=== PATIENT | female | born 1950 | race African-American/Black ===

== ENCOUNTER 2018-04-15 11:06 | Inpatient (IN) | payer MEDICARE ==
[~2018-04-15] VITALS: Ht 157.5 cm; Wt 80.7 kg
--- NOTE | 2018-04-15 11:56 | PHYS DOC ---
Past Medical History Past Medical History: Hypertension Additional Past Medical Histor: uncontrolled Past Surgical History: Appendectomy, Cholecystectomy, Tubal ligation, Other Additional Past Surgical Histo: ovarian cyst; Alcohol Use: Occasionally Drug Use: None Adult General Chief Complaint Chief Complaint: HYPERTENSION [facility] HPI Patient is a 68 year old female who presents with dyspnea. The patient reports feeling short of breath over the last 2 days. Her symptoms initially were intermittent but she reports that she became consistently short of breath this morning. Her symptoms are worse with activity although she continues to have dyspnea while at rest. She denies chest pain. She has no recent travel. She has no history of hormone replacement therapy. The patient does have a remote history of high blood pressure for which she is currently not treated. She states she stopped taking her medications many years earlier and did not return to her doctor to have refills. Review of Systems Review of Systems Constitutional: Denies fever or chills Eyes: Denies change in visual acuity HENT: Denies nasal congestion or sore throat Respiratory: Denies cough Cardiovascular: No additional information not addressed in HPI GI: Denies abdominal pain Musculoskeletal: Denies back pain Integument: Denies rash or skin lesions Neurologic: Denies headache, no focal neuro complaints Endocrine: Denies polyuria or polydipsia All other systems were reviewed and found to be within normal limits, except as documented in this note. Current Medications Current Medications Current Medications Medications (Trade) Dose Ordered Sig/Ingrid Start Time Stop Time Status Last Admin Dose Admin Nitroglycerin/ Dextrose 250 ml @ 0 mls/hr 1X ONCE 04/15/18 12:00 04/15/18 12:01 DC 04/15/18 12:18 1.5 MLS/HR Allergies Allergies Allergies Coded Allergies Type Severity Reaction Last Updated Verified No Known Drug Allergies 04/15/18 No Physical Exam Physical Exam Constitutional: Well developed, well nourished, no acute distress, non-toxic appearance HENT: Normocephalic, atraumatic, bilateral external ears normal, oropharynx moist Eyes: PERRLA, EOMI, conjunctiva normal Neck: Normal range of motion, no tenderness, supple, no stridor, + JVD Cardiovascular:Heart rate regular rhythm, no murmur Lungs & Thorax: mild dyspnea, crackles heard over bilateral bases Abdomen: Bowel sounds normal, soft, NTTP Skin: Warm, dry, no erythema, no rash. Extremities: No tenderness, no edema Neurologic: Alert and oriented X 3 Psychologic: Affect normal, judgement normal Current Patient Data Vital Signs Vital Signs Date Time Temp Pulse Resp B/P (MAP) Pulse Ox O2 Delivery O2 Flow Rate FiO2 04/15/18 12:46 82 16 97 04/15/18 11:25 99.1 243/114 (157) Room Air 99.1 Lab Values Laboratory Tests Test 04/15/18 11:57 04/15/18 12:50 White Blood Count 8.8 x10^3/uL (4.0-11.0) Red Blood Count 4.67 x10^6/uL (3.50-5.40) Hemoglobin 13.3 g/dL (12.0-15.5) Hematocrit 39.2 % (36.0-47.0) Mean Corpuscular Volume 84 fL (79-100) Mean Corpuscular Hemoglobin 29 pg (25-35) Mean Corpuscular Hemoglobin Concent 34 g/dL (31-37) Red Cell Distribution Width 16.1 % (11.5-14.5) H Platelet Count 300 x10^3/uL (140-400) Neutrophils (%) (Auto) 75 % (31-73) H Lymphocytes (%) (Auto) 16 % (24-48) L Monocytes (%) (Auto) 7 % (0-9) Eosinophils (%) (Auto) 2 % (0-3) Basophils (%) (Auto) 1 % (0-3) Neutrophils # (Auto) 6.6 x10^3uL (1.8-7.7) Lymphocytes # (Auto) 1.4 x10^3/uL (1.0-4.8) Monocytes # (Auto) 0.6 x10^3/uL (0.0-1.1) Eosinophils # (Auto) 0.1 x10^3/uL (0.0-0.7) Basophils # (Auto) 0.1 x10^3/uL (0.0-0.2) Prothrombin Time 13.0 SEC (11.7-14.0) Prothrombin Time INR 1.0 (0.8-1.1) PTT 30 SEC (24-38) Sodium Level 141 mmol/L (136-145) Potassium Level 3.5 mmol/L (3.5-5.1) Chloride Level 105 mmol/L (98-107) Carbon Dioxide Level 27 mmol/L (21-32) Anion Gap 9 (6-14) Blood Urea Nitrogen 6 mg/dL (7-20) L Creatinine 0.8 mg/dL (0.6-1.0) Estimated GFR (Cockcroft-Gault) 71.3 Glucose Level 125 mg/dL (70-99) H Calcium Level 8.4 mg/dL (8.5-10.1) L Total Bilirubin 0.4 mg/dL (0.2-1.0) Direct Bilirubin 0.1 mg/dL (0.0-0.2) Aspartate Amino Transferase (AST) 15 U/L (15-37) Alanine Aminotransferase (ALT) 25 U/L (14-59) Alkaline Phosphatase 83 U/L (46-116) Troponin I Quantitative < 0.017 ng/mL (0.000-0.055) DT-Vyz-B-Type Natriuretic Peptide 01329 pg/mL (0-124) H Total Protein 7.2 g/dL (6.4-8.2) Albumin 3.4 g/dL (3.4-5.0) Urine Collection Type Unknown Urine Color Yellow Urine Clarity Clear Urine pH 6.0 Urine Specific [place] 1.010 Urine Protein Negative mg/dL (NEG-TRACE) Urine Glucose (UA) Negative mg/dL (NEG) Urine Ketones (Stick) Negative mg/dL (NEG) Urine Blood Negative (NEG) Urine Nitrite Negative (NEG) Urine Bilirubin Negative (NEG) Urine Urobilinogen Dipstick 0.2 mg/dL (0.2 mg/dL) Urine Leukocyte Esterase Negative (NEG) Urine RBC 0 /HPF (0-2) Urine WBC 1-4 /HPF (0-4) Urine Squamous Epithelial Cells Few /LPF Urine Bacteria Mod /HPF (0-FEW) Laboratory Tests 04/15/18 11:57 Laboratory Tests 04/15/18 11:57 EKG EKG No STEMI Interpretation Time: 11:30 Radiology/Procedures Radiology/Procedures No abnormality seen at the thyroid gland. The trachea and mainstem bronchi show no intraluminal lesions. No abnormality seen at the esophagus. The thoracic aorta shows no aneurysmal dilatation or dissection. The heart size is upper normal with no pericardial effusion. There is no evidence of pulmonary embolus. There are small bilateral pleural effusions layering posteriorly, right greater than left. There is some atelectasis in the left lingula. No other infiltrates or pneumothorax are seen. No acute bony abnormalities are seen but there are some hypertrophic changes in the spine. No abnormality seen at the visualized portions of the liver, spleen, adrenal glands or pancreas. Gallbladder appears to be surgically absent. IMPRESSION: No evidence of pulmonary embolus. Linear atelectasis in the left lingular segment. Small bilateral pleural effusions, right greater than left. Course & Med Decision Making Course & Med Decision Making Pertinent Labs and Imaging studies reviewed. (See chart for details) Patient is seen and examined. She has a systolic blood pressure in the 220s to 240's. She has JVD. She has crackles. Suspect hypertensive emergency. EKG is ordered but does not show STEMI. We'll check labs, urinalysis. NTG ordered. Patient was ultimately found to have significant elevated BNP. Her x-ray did not reveal pulmonary edema. Her CT scan did reveal bilateral pleural effusions that are small. She did not have oxygen requirement. She did not have overt right sided heart failure either. Patient was placed on nitroglycerin drip. The her blood pressure improved to 180s to 190 systolic with a nitroglycerin drip rate of 40-50 mics. I discussed this patient for admission with Dr. Lawson who agreed to admit the patient. Patient was also agreeable. All of her results were reviewed and discussed with her. Darrell Disclaimer Darrell Disclaimer This electronic medical record was generated, in whole or in part, using a voice recognition dictation system. ADELAIDA RODRIGUEZ DO Apr 15, 2018 11:56
[2018-04-15] MEDS ORDERED: NITROGLYCERIN PREMIX 250 ML IV ONE (12:00)
--- NOTE | 2018-04-15 12:06 | RAD ---
Chest AP portable at 1154: Reason for examination: Hypertension and dyspnea. The heart size is enlarged. Mediastinum is unremarkable. Lung good are clear. No acute bony abnormalities are seen. Impression: Cardiomegaly. No gross congestion or infiltrates. Electronically signed by: Jyoti Portillo MD (04/15/2018 12:02 PM) [facility] [place]
[2018-04-15 12:10] LABS: BASO # 0.1 x10^3/uL (0.0-0.2); BASO % 1 % (0-3); EOS # 0.1 x10^3/uL (0.0-0.7); EOS % 2 % (0-3); HEMATOCRIT 39.2 % (36.0-47.0); HEMOGLOBIN 13.3 g/dL (12.0-15.5); LYMPH # 1.4 x10^3/uL (1.0-4.8); LYMPH % 16 % (24-48); MEAN CORPUSCULAR HEMOGLOBIN 29 pg (25-35); MEAN CORPUSCULAR HGB CONC 34 g/dL (31-37); MEAN CORPUSCULAR VOLUME 84 fL (79-100); MONO # 0.6 x10^3/uL (0.0-1.1); MONO % 7 % (0-9); NEUT # 6.6 x10^3uL (1.8-7.7); NEUT % 75 % (31-73); PLATELET COUNT 300 x10^3/uL (140-400); RED BLOOD COUNT 4.67 x10^6/uL (3.50-5.40); RED CELL DISTRIBUTION WIDTH 16.1 % (11.5-14.5); WHITE BLOOD COUNT 8.8 x10^3/uL (4.0-11.0)
--- NOTE | 2018-04-15 12:12 | EKG ---
[facility] [address] [place] [address] Test Date: 2018-04-15 Test Time: 11:25:42 Pat Name: TANNER VÁSQUEZ Department: Room: Gender: Female Jr. Systems Administrator: [place] : 1950 Requested By: ADELAIDA RODRIGUEZ Order Number: [id number] Reading MD: Sarwat Lentz MD Measurements Intervals [place] Rate: 103 P: 2 [place]: 126 QRS: -13 QRSD: 88 T: 118 QT: 342 QTc: 456 Interpretive Statements SINUS TACHYCARDIA LEFT ATRIAL ABNORMALITY LEFTWARD AXIS LVH WITH REPOLARIZATION ABNORMALITY Electronically Signed On 04-16-2018 10:07:39 CDT by Sarwat Lentz MD
[2018-04-15 12:18] LABS: CALCIUM 8.4 mg/dL (8.5-10.1); CREATININE 0.8 mg/dL (0.6-1.0); GFR 71.3; POTASSIUM 3.5 mmol/L (3.5-5.1)
[2018-04-15 12:23] LABS: ALBUMIN 3.4 g/dL (3.4-5.0); DIRECT BILIRUBIN 0.1 mg/dL (0.0-0.2); TOTAL BILIRUBIN 0.4 mg/dL (0.2-1.0); TOTAL PROTEIN 7.2 g/dL (6.4-8.2)
[2018-04-15 13:04] LABS: BILIRUBIN,URINE NEGATIVE (NEG); CLARITY,URINE CLEAR; COLOR,URINE YELLOW; NITRITE,URINE NEGATIVE (NEG); PROTEIN,URINE NEGATIVE (NEG-TRACE); UROBILINOGEN,URINE 0.2 mg/dL (0.2 mg/dL)
[2018-04-15 13:13] LABS: BACTERIA,URINE MOD /HPF (0-FEW); RBC,URINE 0 /HPF (0-2); SQUAMOUS EPITHELIAL CELL,UR FEW /LPF
[2018-04-15] MEDS ORDERED: CONTRAST GIVEN. MC PRN (13:15)
[2018-04-15] MEDS ORDERED: IOHEXOL 300 MG/ML 100ML VIAL. IV ONE (13:30)
--- NOTE | 2018-04-15 13:33 | RAD ---
CT angiogram of the chest with contrast: Reason for examination: Dyspnea. Uncontrolled blood pressure. Helical images were obtained through the chest with intravenous administration of 75 cc Omnipaque 300 using PE protocol. 3-D MIPS reconstruction was performed in sagittal and coronal planes. Exposure: One or more of the following individualized dose reduction techniques were utilized for this examination: 1. Automated exposure control 2. Adjustment of the mA and/or kV according to patient size 3. Use of iterative reconstruction technique. No abnormality seen at the thyroid gland. The trachea and mainstem bronchi show no intraluminal lesions. No abnormality seen at the esophagus. The thoracic aorta shows no aneurysmal dilatation or dissection. The heart size is upper normal with no pericardial effusion. There is no evidence of pulmonary embolus. There are small bilateral pleural effusions layering posteriorly, right greater than left. There is some atelectasis in the left lingula. No other infiltrates or pneumothorax are seen. No acute bony abnormalities are seen but there are some hypertrophic changes in the spine. No abnormality seen at the visualized portions of the liver, spleen, adrenal glands or pancreas. Gallbladder appears to be surgically absent. IMPRESSION: No evidence of pulmonary embolus. Linear atelectasis in the left lingular segment. Small bilateral pleural effusions, right greater than left. Electronically signed by: Jyoti Portillo MD (04/15/2018 1:29 PM) [facility]
[2018-04-15] MEDS ORDERED: ACETAMINOPHEN 325 MG TABLET. PO PRN (13:45)
[2018-04-15 15:05] VITALS: BP 187/89
--- NOTE | 2018-04-15 15:19 | HP ---
ADMIT DATE: 04/15/2018 CHIEF COMPLAINT: Hypertension. HISTORY OF PRESENT ILLNESS: The patient is a pleasant 68-year-old female who has not seen a doctor in over 11 years. She states she noted that she is a little short of breath for the past couple of days. It has been intermittent, but this morning became consistent. She tried taking some home meds [id number] but that did not seem to help. She states she used to have high blood pressure, but quit taking her meds and quit going to her doctor. While in the ER, she was noted to have pressures in the 240s. We placed her on nitro. I have discussed the case with ER physician. We are going to admit the patient. PAST MEDICAL HISTORY: Noncompliance, hypertension, cholecystectomy, tubal ligation, ovarian cyst. ALLERGIES: None. FAMILY HISTORY: Hypertension. SOCIAL HISTORY: She is a retired teacher. She does not drink, smoke or take drugs. MEDICATIONS: Reviewed, please refer to the MRAD. REVIEW OF SYSTEMS: GENERAL: She complains of weakness. SKIN: No bruising, hair changes or rashes. EYES: No blurred, double or loss of vision. NOSE AND THROAT: No history of nosebleeds, hoarseness or sore throat. HEART: No history of palpitations, chest pain or shortness of breath on exertion. LUNGS: Denies cough, hemoptysis, wheezing or shortness of breath. GASTROINTESTINAL: Denies changes in appetite, nausea, vomiting, diarrhea or constipation. GENITOURINARY: No history of frequency, urgency, hesitancy or nocturia. NEUROLOGIC: Denies history of numbness, tingling, tremor or weakness. PSYCHIATRIC: No history of panic, anxiety or depression. ENDOCRINE: No history of heat or cold intolerance, polyuria or polydipsia. EXTREMITIES: Denies muscle weakness, joint pain, pain on walking or stiffness. PHYSICAL EXAMINATION: VITAL SIGNS: Temperature afebrile, pulse 92, respirations 18, blood pressure 243/114. GENERAL: She is alert, cooperative. HEART: Normal S1, S2. LUNGS: Clear. ABDOMEN: Soft. EXTREMITIES: Trace edema. SKIN: No rashes. ENDOCRINE: No thyromegaly. LYMPHATICS: No cervical nodes. HEMATOPOIETIC: No bruising. LABORATORY DATA: Hematology is normal. Electrolytes are normal. Glucose is 125, calcium 8.4. BNP 13,733. ASSESSMENT AND PLAN: Hypertensive urgency with acute on chronic systolic and diastolic heart failure. The patient is being admitted. We will consult Cardiology. IV nitro, ICU monitoring, try to resume her home meds, PT, OT, frequent labs. PROGNOSIS: Guarded. AMINTA SMART DO DR: LEODAN/nicolle JOB#: [id number] / [id number]
[2018-04-15] MEDS ORDERED: BENZOCAINE/MENTHOL LOZENGE. PO PRN (16:30)
[2018-04-15 19:30] VITALS: BP 186/85
[2018-04-15] MEDS ORDERED: FUROSEMIDE 40 MG/4 ML VIAL. IVP ONE (19:30)
[2018-04-15] MEDS: IPRATRPIUM/ALBUTEROL 0.5/2.5MG 3 ML NEBU. NEB SCH (20:34)
[2018-04-15 22:35] VITALS: BP 167/81
[2018-04-16 03:05] VITALS: BP 174/81
[2018-04-16 05:09] LABS: BASO % 0 % (0-3); EOS # 0.2 x10^3/uL (0.0-0.7); EOS % 2 % (0-3); HEMATOCRIT 38.6 % (36.0-47.0); LYMPH # 1.3 x10^3/uL (1.0-4.8); LYMPH % 17 % (24-48); MEAN CORPUSCULAR HEMOGLOBIN 28 pg (25-35); MEAN CORPUSCULAR HGB CONC 34 g/dL (31-37); MEAN CORPUSCULAR VOLUME 84 fL (79-100); MONO # 0.6 x10^3/uL (0.0-1.1); MONO % 8 % (0-9); NEUT # 5.6 x10^3uL (1.8-7.7); NEUT % 72 % (31-73); PLATELET COUNT 279 x10^3/uL (140-400); RED BLOOD COUNT 4.58 x10^6/uL (3.50-5.40); RED CELL DISTRIBUTION WIDTH 16.4 % (11.5-14.5); WHITE BLOOD COUNT 7.7 x10^3/uL (4.0-11.0)
[2018-04-16 05:45] LABS: ALBUMIN 3.3 g/dL (3.4-5.0); ALBUMIN/GLOBULIN RATIO 0.9 (1.0-1.7); CALCIUM 8.5 mg/dL (8.5-10.1); CREATININE 0.9 mg/dL (0.6-1.0); GFR 75.3; POTASSIUM 3.7 mmol/L (3.5-5.1); TOTAL BILIRUBIN 0.4 mg/dL (0.2-1.0); TOTAL PROTEIN 6.9 g/dL (6.4-8.2)
[2018-04-16 07:00] VITALS: BP 178/86
[2018-04-16] MEDS: IPRATRPIUM/ALBUTEROL 0.5/2.5MG 3 ML NEBU. NEB SCH ×4 (07:24→20:23)
--- NOTE | 2018-04-16 10:47 | PDOC2 ---
ANTHONY HOOKIA Gerald OVEREDGER 04/16/18 1047: CARDIAC CONSULT DATE OF CONSULT Date of Consult DATE: 04/16/18 TIME: 10:46 REASON FOR CONSULT Reason for Consult: dyspnea, elevated BNP REFERRING PHYSICIAN Referring Physician: [place] SOURCE Source: Chart review, Patient HISTORY OF PRESENT ILLNESS HISTORY OF PRESENT ILLNESS 68 year old female with a history of HTN who discontinued medications and has not followed up with a physician in > 11 years. Presented to ER with hypertensive urgency with acute heart failure/pulmonary edema symptoms per ER record. Treated with IV lasix and NTG gtt. Patient with thoracic and upper abdominal pressure associated with dyspnea and lightheadedness only. Denies recent LE edema, PND or orthopnea. Also noted symptoms when in the heat this year. EKG without acute changes; troponin levels not consistent with [place]I X 2 [place] [address], however, CXR without pulmonary edema. Reason for Visit: hypertensive urgency PAST MEDICAL HISTORY Cardiovascular: HTN PAST SURGICAL HISTORY Past Surgical History: Appendectomy, Cholecystectomy, Tubal Ligation, Other ( ovarian cyst) FAMILY HISTORY Family History: Diabetes, Heart Disease, Hypertension, Stroke SOCIAL HISTORY Smoke: 2 packs per day (1-2 ppd since in her early 20s) ALCOHOL: occassional Drugs: None Lives: Alone CURRENT MEDICATIONS CURRENT MEDICATIONS Current Medications Medications (Trade) Dose Ordered Sig/Ingrid Route PRN Reason Start Time Stop Time Status Last Admin Dose Admin Nitroglycerin/ Dextrose 250 ml @ 0 mls/hr 1X ONCE IV 04/15/18 12:00 04/15/18 12:01 DC 04/15/18 12:18 Iohexol (Omnipaque 300 Mg/ml) 75 ml 1X ONCE IV 04/15/18 13:30 04/15/18 13:31 DC 04/15/18 13:20 Acetaminophen (Tylenol) 650 mg PRN Q4HRS PRN PO FEVER 04/15/18 13:45 04/16/18 13:44 04/15/18 16:29 Throat Lozenges (Cepacol Sore Throat Lozenge) 1 saul PRN Q4HRS PRN PO SORE THROAT 04/15/18 16:30 04/15/18 16:43 Furosemide (Lasix) 60 mg 1X ONCE IVP 04/15/18 19:30 04/15/18 19:31 DC 04/15/18 19:10 Albuterol/ Ipratropium (Duoneb) 3 ml RTQID NEB 04/15/18 20:00 04/16/18 07:24 ALLERGIES ALLERGIES: Coded Allergies: No Known Drug Allergies (Unverified , 04/15/18) ROS Review of System 14 point review with pertinent positives in HPI PHYSICAL EXAM General: Alert, Oriented X3, Cooperative, No acute distress HEENT: Atraumatic, Mucous membr. moist/pink Lungs: Clear to auscultation Heart: Normal S1, Normal S2, No murmurs, Other (no edema) Abdomen: Soft Extremities: Normal pulses Skin: No rashes Neuro: Normal speech Psych/Mental Status: Mental status NL, Mood NL MUSCULOSKELETAL: No deformity VITALS VITALS Vital Signs Date Time Temp Pulse Resp B/P (MAP) Pulse Ox O2 Delivery O2 Flow Rate FiO2 04/16/18 08:00 Room Air 04/16/18 07:24 99 04/16/18 07:00 98.1 87 18 178/86 (116) 98.1 LABS Lab: Laboratory Tests Test 04/15/18 11:57 04/15/18 12:50 04/15/18 19:20 04/16/18 04:00 White Blood Count 8.8 x10^3/uL (4.0-11.0) 7.7 x10^3/uL (4.0-11.0) Red Blood Count 4.67 x10^6/uL (3.50-5.40) 4.58 x10^6/uL (3.50-5.40) Hemoglobin 13.3 g/dL (12.0-15.5) 13.0 g/dL (12.0-15.5) Hematocrit 39.2 % (36.0-47.0) 38.6 % (36.0-47.0) Mean Corpuscular Volume 84 fL (79-100) 84 fL (79-100) Mean Corpuscular Hemoglobin 29 pg (25-35) 28 pg (25-35) Mean Corpuscular Hemoglobin Concent 34 g/dL (31-37) 34 g/dL (31-37) Red Cell Distribution Width 16.1 % (11.5-14.5) 16.4 % (11.5-14.5) Platelet Count 300 x10^3/uL (140-400) 279 x10^3/uL (140-400) Neutrophils (%) (Auto) 75 % (31-73) 72 % (31-73) Lymphocytes (%) (Auto) 16 % (24-48) 17 % (24-48) Monocytes (%) (Auto) 7 % (0-9) 8 % (0-9) Eosinophils (%) (Auto) 2 % (0-3) 2 % (0-3) Basophils (%) (Auto) 1 % (0-3) 0 % (0-3) Neutrophils # (Auto) 6.6 x10^3uL (1.8-7.7) 5.6 x10^3uL (1.8-7.7) Lymphocytes # (Auto) 1.4 x10^3/uL (1.0-4.8) 1.3 x10^3/uL (1.0-4.8) Monocytes # (Auto) 0.6 x10^3/uL (0.0-1.1) 0.6 x10^3/uL (0.0-1.1) Eosinophils # (Auto) 0.1 x10^3/uL (0.0-0.7) 0.2 x10^3/uL (0.0-0.7) Basophils # (Auto) 0.1 x10^3/uL (0.0-0.2) 0.0 x10^3/uL (0.0-0.2) Prothrombin Time 13.0 SEC (11.7-14.0) Prothromb Time International Ratio 1.0 (0.8-1.1) Activated Partial Thromboplast Time 30 SEC (24-38) Sodium Level 141 mmol/L (136-145) 141 mmol/L (136-145) Potassium Level 3.5 mmol/L (3.5-5.1) 3.7 mmol/L (3.5-5.1) Chloride Level 105 mmol/L (98-107) 105 mmol/L (98-107) Carbon Dioxide Level 27 mmol/L (21-32) 29 mmol/L (21-32) Anion Gap 9 (6-14) 7 (6-14) Blood Urea Nitrogen 6 mg/dL (7-20) 7 mg/dL (7-20) Creatinine 0.8 mg/dL (0.6-1.0) 0.9 mg/dL (0.6-1.0) Estimated GFR (Cockcroft-Gault) 71.3 75.3 Glucose Level 125 mg/dL (70-99) 100 mg/dL (70-99) Calcium Level 8.4 mg/dL (8.5-10.1) 8.5 mg/dL (8.5-10.1) Total Bilirubin 0.4 mg/dL (0.2-1.0) 0.4 mg/dL (0.2-1.0) Direct Bilirubin 0.1 mg/dL (0.0-0.2) Aspartate Amino Transf (AST/SGOT) 15 U/L (15-37) 12 U/L (15-37) Alanine Aminotransferase (ALT/SGPT) 25 U/L (14-59) 23 U/L (14-59) Alkaline Phosphatase 83 U/L (46-116) 79 U/L (46-116) Troponin I Quantitative < 0.017 ng/mL (0.000-0.055) < 0.017 ng/mL (0.000-0.055) GJ-Mcd-B-Type Natriuretic Peptide 04924 pg/mL (0-124) Total Protein 7.2 g/dL (6.4-8.2) 6.9 g/dL (6.4-8.2) Albumin 3.4 g/dL (3.4-5.0) 3.3 g/dL (3.4-5.0) Urine Collection Type Unknown Urine Color Yellow Urine Clarity Clear Urine pH 6.0 Urine Specific [place] 1.010 Urine Protein Negative mg/dL (NEG-TRACE) Urine Glucose (UA) Negative mg/dL (NEG) Urine Ketones (Stick) Negative mg/dL (NEG) Urine Blood Negative (NEG) Urine Nitrite Negative (NEG) Urine Bilirubin Negative (NEG) Urine Urobilinogen Dipstick 0.2 mg/dL (0.2 mg/dL) Urine Leukocyte Esterase Negative (NEG) Urine RBC 0 /HPF (0-2) Urine WBC 1-4 /HPF (0-4) Urine Squamous Epithelial Cells Few /LPF Urine Bacteria Mod /HPF (0-FEW) BUN/Creatinine Ratio 8 (6-20) Albumin/Globulin Ratio 0.9 (1.0-1.7) IMAGES IMAGES CTA chest: No evidence of pulmonary embolus. Linear atelectasis in the left lingular segment. Small bilateral pleural effusions, right greater than left. CXR: Cardiomegaly. No gross congestion or infiltrates. EKG EKG SINUS TACHYCARDIA LEFT ATRIAL ABNORMALITY LEFTWARD AXIS LVH WITH REPOLARIZATION ABNORMALITY ASSESSMENT/PLAN ASSESSMENT/PLAN 1. hypertensive urgency --noncompliance with medications --off NTG --start oral meds: add BB and CCB --advised she will needs meds for the remainder of her life --advised to obtain PCP 2. elevated NT-proBNP in the setting of hypertensive urgency --treated with IV diuretics in the ER --no supporting clinical findings --TTE to evaluate LVEF 3. chest pressure most likely secondary to hypertensive urgency --significant tobacco use (approx 80 pack years) and family history of heart disease --would consider MPI for tomorrow if BP controlled; if not, then recommend as outpatient --TTE to evaluate LVEF and assess for WMA as well as LVH --FLP ordered 4. tobacco abuse --smoking cessation advised ALEKS THOMAS MD 04/16/18 1617: CARDIAC CONSULT ASSESSMENT/PLAN ASSESSMENT/PLAN Patient seen and examined. Agree with [employer]'s assessment and plan. Accelerated hypertension secondary to noncompliance with medications. We will continue to to titrate oral antihypertensives for better blood pressure control. Continue diuresis for acute on chronic diastolic heart failure. Check 2-D echo to assess LV systolic function. Agree with Lexiscan nuclear stress test to rule out ischemia as an etiology of her chest pain. Thank you for your consultation. RAIMUNDO HOOK APRN Apr 16, 2018 10:47 ALEKS THOMAS MD Apr 16, 2018 16:17
[2018-04-16 11:00] VITALS: BP 180/102
[2018-04-16] MEDS ORDERED: LABETALOL HCL 100 MG TABLET. PO SCH (11:00)
[2018-04-16 15:00] VITALS: BP 174/89
--- NOTE | 2018-04-16 15:27 | PDOC ---
PROGRESS NOTES Chief Complaint Chief Complaint HTN urgency sob, copd with tobaccoism possible chf exacerbation morbid obesity chest pain, 2/2 chf possibly plan:fu with card mpi tmr add labetolol as per card, may need more meds add lasix 40mg iv daily echo pending dvt ppx talked to son at bedside History of Present Illness History of Present Illness ROS: no fever, chills, sob or chest pain feels better had sob and chest pain, neg CE htn still high at 200 Vitals Vitals Vital Signs Date Time Temp Pulse Resp B/P (MAP) Pulse Ox O2 Delivery O2 Flow Rate FiO2 04/16/18 11:40 Room Air 04/16/18 11:00 98.3 88 20 180/102 (128) 99 98.3 Physical Exam General: Alert, Oriented X3, Cooperative Heart: Regular rate, Normal S1, Normal S2 Lungs: Crackles (bl mild) Abdomen: Normal bowel sounds, Soft Extremities: No clubbing, No cyanosis Skin: No rashes, No breakdown Labs LABS Laboratory Tests Test 04/15/18 19:20 04/16/18 04:00 Troponin I Quantitative < 0.017 ng/mL (0.000-0.055) White Blood Count 7.7 x10^3/uL (4.0-11.0) Red Blood Count 4.58 x10^6/uL (3.50-5.40) Hemoglobin 13.0 g/dL (12.0-15.5) Hematocrit 38.6 % (36.0-47.0) Mean Corpuscular Volume 84 fL (79-100) Mean Corpuscular Hemoglobin 28 pg (25-35) Mean Corpuscular Hemoglobin Concent 34 g/dL (31-37) Red Cell Distribution Width 16.4 % (11.5-14.5) Platelet Count 279 x10^3/uL (140-400) Neutrophils (%) (Auto) 72 % (31-73) Lymphocytes (%) (Auto) 17 % (24-48) Monocytes (%) (Auto) 8 % (0-9) Eosinophils (%) (Auto) 2 % (0-3) Basophils (%) (Auto) 0 % (0-3) Neutrophils # (Auto) 5.6 x10^3uL (1.8-7.7) Lymphocytes # (Auto) 1.3 x10^3/uL (1.0-4.8) Monocytes # (Auto) 0.6 x10^3/uL (0.0-1.1) Eosinophils # (Auto) 0.2 x10^3/uL (0.0-0.7) Basophils # (Auto) 0.0 x10^3/uL (0.0-0.2) Sodium Level 141 mmol/L (136-145) Potassium Level 3.7 mmol/L (3.5-5.1) Chloride Level 105 mmol/L (98-107) Carbon Dioxide Level 29 mmol/L (21-32) Anion Gap 7 (6-14) Blood Urea Nitrogen 7 mg/dL (7-20) Creatinine 0.9 mg/dL (0.6-1.0) Estimated GFR (Cockcroft-Gault) 75.3 BUN/Creatinine Ratio 8 (6-20) Glucose Level 100 mg/dL (70-99) Calcium Level 8.5 mg/dL (8.5-10.1) Total Bilirubin 0.4 mg/dL (0.2-1.0) Aspartate Amino Transf (AST/SGOT) 12 U/L (15-37) Alanine Aminotransferase (ALT/SGPT) 23 U/L (14-59) Alkaline Phosphatase 79 U/L (46-116) Total Protein 6.9 g/dL (6.4-8.2) Albumin 3.3 g/dL (3.4-5.0) Albumin/Globulin Ratio 0.9 (1.0-1.7) Comment Review of Relevant I have reviewed the following items alex (where applicable) has been applied. Labs Laboratory Tests Test 04/15/18 11:57 04/15/18 12:50 04/15/18 19:20 04/16/18 04:00 White Blood Count 8.8 x10^3/uL (4.0-11.0) 7.7 x10^3/uL (4.0-11.0) Red Blood Count 4.67 x10^6/uL (3.50-5.40) 4.58 x10^6/uL (3.50-5.40) Hemoglobin 13.3 g/dL (12.0-15.5) 13.0 g/dL (12.0-15.5) Hematocrit 39.2 % (36.0-47.0) 38.6 % (36.0-47.0) Mean Corpuscular Volume 84 fL (79-100) 84 fL (79-100) Mean Corpuscular Hemoglobin 29 pg (25-35) 28 pg (25-35) Mean Corpuscular Hemoglobin Concent 34 g/dL (31-37) 34 g/dL (31-37) Red Cell Distribution Width 16.1 % (11.5-14.5) 16.4 % (11.5-14.5) Platelet Count 300 x10^3/uL (140-400) 279 x10^3/uL (140-400) Neutrophils (%) (Auto) 75 % (31-73) 72 % (31-73) Lymphocytes (%) (Auto) 16 % (24-48) 17 % (24-48) Monocytes (%) (Auto) 7 % (0-9) 8 % (0-9) Eosinophils (%) (Auto) 2 % (0-3) 2 % (0-3) Basophils (%) (Auto) 1 % (0-3) 0 % (0-3) Neutrophils # (Auto) 6.6 x10^3uL (1.8-7.7) 5.6 x10^3uL (1.8-7.7) Lymphocytes # (Auto) 1.4 x10^3/uL (1.0-4.8) 1.3 x10^3/uL (1.0-4.8) Monocytes # (Auto) 0.6 x10^3/uL (0.0-1.1) 0.6 x10^3/uL (0.0-1.1) Eosinophils # (Auto) 0.1 x10^3/uL (0.0-0.7) 0.2 x10^3/uL (0.0-0.7) Basophils # (Auto) 0.1 x10^3/uL (0.0-0.2) 0.0 x10^3/uL (0.0-0.2) Prothrombin Time 13.0 SEC (11.7-14.0) Prothromb Time International Ratio 1.0 (0.8-1.1) Activated Partial Thromboplast Time 30 SEC (24-38) Sodium Level 141 mmol/L (136-145) 141 mmol/L (136-145) Potassium Level 3.5 mmol/L (3.5-5.1) 3.7 mmol/L (3.5-5.1) Chloride Level 105 mmol/L (98-107) 105 mmol/L (98-107) Carbon Dioxide Level 27 mmol/L (21-32) 29 mmol/L (21-32) Anion Gap 9 (6-14) 7 (6-14) Blood Urea Nitrogen 6 mg/dL (7-20) 7 mg/dL (7-20) Creatinine 0.8 mg/dL (0.6-1.0) 0.9 mg/dL (0.6-1.0) Estimated GFR (Cockcroft-Gault) 71.3 75.3 Glucose Level 125 mg/dL (70-99) 100 mg/dL (70-99) Calcium Level 8.4 mg/dL (8.5-10.1) 8.5 mg/dL (8.5-10.1) Total Bilirubin 0.4 mg/dL (0.2-1.0) 0.4 mg/dL (0.2-1.0) Direct Bilirubin 0.1 mg/dL (0.0-0.2) Aspartate Amino Transf (AST/SGOT) 15 U/L (15-37) 12 U/L (15-37) Alanine Aminotransferase (ALT/SGPT) 25 U/L (14-59) 23 U/L (14-59) Alkaline Phosphatase 83 U/L (46-116) 79 U/L (46-116) Troponin I Quantitative < 0.017 ng/mL (0.000-0.055) < 0.017 ng/mL (0.000-0.055) UP-Tqe-S-Type Natriuretic Peptide 76775 pg/mL (0-124) Total Protein 7.2 g/dL (6.4-8.2) 6.9 g/dL (6.4-8.2) Albumin 3.4 g/dL (3.4-5.0) 3.3 g/dL (3.4-5.0) Urine Collection Type Unknown Urine Color Yellow Urine Clarity Clear Urine pH 6.0 Urine Specific [place] 1.010 Urine Protein Negative mg/dL (NEG-TRACE) Urine Glucose (UA) Negative mg/dL (NEG) Urine Ketones (Stick) Negative mg/dL (NEG) Urine Blood Negative (NEG) Urine Nitrite Negative (NEG) Urine Bilirubin Negative (NEG) Urine Urobilinogen Dipstick 0.2 mg/dL (0.2 mg/dL) Urine Leukocyte Esterase Negative (NEG) Urine RBC 0 /HPF (0-2) Urine WBC 1-4 /HPF (0-4) Urine Squamous Epithelial Cells Few /LPF Urine Bacteria Mod /HPF (0-FEW) BUN/Creatinine Ratio 8 (6-20) Albumin/Globulin Ratio 0.9 (1.0-1.7) Laboratory Tests Test 04/15/18 19:20 04/16/18 04:00 Troponin I Quantitative < 0.017 ng/mL (0.000-0.055) White Blood Count 7.7 x10^3/uL (4.0-11.0) Red Blood Count 4.58 x10^6/uL (3.50-5.40) Hemoglobin 13.0 g/dL (12.0-15.5) Hematocrit 38.6 % (36.0-47.0) Mean Corpuscular Volume 84 fL (79-100) Mean Corpuscular Hemoglobin 28 pg (25-35) Mean Corpuscular Hemoglobin Concent 34 g/dL (31-37) Red Cell Distribution Width 16.4 % (11.5-14.5) Platelet Count 279 x10^3/uL (140-400) Neutrophils (%) (Auto) 72 % (31-73) Lymphocytes (%) (Auto) 17 % (24-48) Monocytes (%) (Auto) 8 % (0-9) Eosinophils (%) (Auto) 2 % (0-3) Basophils (%) (Auto) 0 % (0-3) Neutrophils # (Auto) 5.6 x10^3uL (1.8-7.7) Lymphocytes # (Auto) 1.3 x10^3/uL (1.0-4.8) Monocytes # (Auto) 0.6 x10^3/uL (0.0-1.1) Eosinophils # (Auto) 0.2 x10^3/uL (0.0-0.7) Basophils # (Auto) 0.0 x10^3/uL (0.0-0.2) Sodium Level 141 mmol/L (136-145) Potassium Level 3.7 mmol/L (3.5-5.1) Chloride Level 105 mmol/L (98-107) Carbon Dioxide Level 29 mmol/L (21-32) Anion Gap 7 (6-14) Blood Urea Nitrogen 7 mg/dL (7-20) Creatinine 0.9 mg/dL (0.6-1.0) Estimated GFR (Cockcroft-Gault) 75.3 BUN/Creatinine Ratio 8 (6-20) Glucose Level 100 mg/dL (70-99) Calcium Level 8.5 mg/dL (8.5-10.1) Total Bilirubin 0.4 mg/dL (0.2-1.0) Aspartate Amino Transf (AST/SGOT) 12 U/L (15-37) Alanine Aminotransferase (ALT/SGPT) 23 U/L (14-59) Alkaline Phosphatase 79 U/L (46-116) Total Protein 6.9 g/dL (6.4-8.2) Albumin 3.3 g/dL (3.4-5.0) Albumin/Globulin Ratio 0.9 (1.0-1.7) Medications Current Medications Nitroglycerin/ Dextrose 250 ml @ 0 mls/hr 1X ONCE IV Last administered on 04/15at 12:18; Start 04/15/18 at 12:00; Stop 04/15/18 at 12:01; Status DC Iohexol (Omnipaque 300 Mg/ml) 75 ml 1X ONCE IV Last administered on 04/15/18at 13:20; Start 04/15/18 at 13:30; Stop 04/15/18 at 13:31; Status DC Info (CONTRAST GIVEN -- Rx MONITORING) 1 each PRN DAILY PRN MC SEE COMMENTS; Start 04/15/18 at 13:15; Stop 04/17/18 at 13:14 Acetaminophen (Tylenol) 650 mg PRN Q4HRS PRN PO FEVER Last administered on 04/15at 16:29; Start 04/15/18 at 13:45; Stop 04/16/18 at 13:44; Status DC Throat Lozenges (Cepacol Sore Throat Lozenge) 1 saul PRN Q4HRS PRN PO SORE THROAT Last administered on 04/15/18at 16:43; Start 04/15/18 at 16:30 Furosemide (Lasix) 60 mg 1X ONCE IVP Last administered on 04/15/18at 19:10; Start 04/15/18 at 19:30; Stop 04/15/18 at 19:31; Status DC Albuterol/ Ipratropium (Duoneb) 3 ml RTQID NEB Last administered on 04/16/18at 11:39; Start 04/15/18 at 20:00 Labetalol HCl (Trandate) 100 mg BID PO Last administered on 04/16/18at 10:58; Start 04/16/18 at 11:00 Vitals/I & O Vital Sign - Last 24 Hours 04/15/18 04/15/18 04/15/18 04/15/18 19:27 19:30 20:35 22:35 Temp 97.9 98.3 97.9 98.3 Pulse 75 79 Resp 20 18 B/P (MAP) 186/85 (118) 167/81 (109) Pulse Ox 95 97 95 O2 Delivery Room Air Room Air Room Air Room Air 04/16/18 04/16/18 04/16/18 04/16/18 03:05 07:00 07:24 08:00 Temp 98.3 98.1 98.3 98.1 Pulse 75 87 Resp 20 18 B/P (MAP) 174/81 (112) 178/86 (116) Pulse Ox 98 100 99 O2 Delivery Room Air Room Air Room Air Room Air 04/16/18 04/16/18 04/16/18 10:58 11:00 11:40 Temp 98.3 98.3 Pulse 87 88 Resp 20 B/P (MAP) 178/86 180/102 (128) Pulse Ox 99 O2 Delivery Room Air Room Air Intake and Output 04/15/18 04/15/18 04/16/18 15:01 23:01 07:01 Intake Total 220 ml 240 ml Output Total 1000 ml 1125 ml Balance -780 ml -885 ml BRIANA PROCTOR MD Apr 16, 2018 15:27
[2018-04-16] MEDS ORDERED: LABETALOL 20 MG/4 ML DISP.SYRIN. IVP PRN (15:30)
[2018-04-16] MEDS ORDERED: traMADol 50 MG TABLET PO PRN (15:30)
[2018-04-16] MEDS ORDERED: ACETAMINOPHEN 325 MG TABLET. PO PRN (15:30)
[2018-04-16] MEDS ORDERED: MORPHINE SULFATE 2 MG/ML VIAL. IV PRN (15:30)
[2018-04-16] MEDS ORDERED: LABETALOL HCL 100 MG TABLET. PO ONE (15:30)
[2018-04-16] MEDS ORDERED: ONDANSETRON PF 4 MG/2 ML VIAL. IV PRN (15:30)
[2018-04-16] MEDS ORDERED: DOCUSATE SODIUM 100 MG CAPSULE. PO PRN (15:30)
[2018-04-16] MEDS: FUROSEMIDE 40 MG/4 ML VIAL. IVP SCH (16:00)
[2018-04-16] MEDS: ENOXAPARIN 40 MG/0.4 ML SYRINGE. SQ SCH (16:47)
[2018-04-16] MEDS ORDERED: amLODIPine BESYLATE 5 MG TABLET PO SCH (17:00)
--- NOTE | 2018-04-16 17:19 | CARD ---
MR#: [id number] Date of Study: 04/16/2018 Ordering Physician: RAIMUNDO HOOK, Referring Physician: Chary CORRIGAN: EDILMA [place] APPROVED REPORT EXAM: Two-dimensional and M-mode echocardiogram with Doppler and color Doppler. Other Information Quality : AverageHR: 87bpm INDICATION Hypertension/HCVD 2D DIMENSIONS RVDd2.9 (2.9-3.5cm)Left Atrium(2D)3.8 (1.6-4.0cm) IVSd1.3 (0.7-1.1cm)Aortic Root(2D)2.7 (2.0-3.7cm) LVDd5.7 (3.9-5.9cm)LVOT Diameter2.0 (1.8-2.4cm) PWd1.5 (0.7-1.1cm)IVSs1.4 (0.8-1.2cm) LVDs5.1 (2.5-4.0cm)FS (%) 9.6 % PWs1.6 (0.8-1.2cm)SV32.9 ml LVEF(%)20.8 (>50%) M-Mode DIMENSIONS IVSd2.23 (0.7-1.1cm)LVDd5.36 (4.0-5.6cm) PWd1.51 (0.7-1.1cm)IVSs1.85 cm FS (%) 11 %LVDs4.80 (2.0-3.8cm) PWs1.62 cmLVEF(%)23 (>50%) Aortic Valve AoV Peak Ihsan.110.0cm/sAoV VTI17.7cm AO Peak GR.4.8mmHgLVOT Peak Ihsan.55.2cm/s LVOT VTI 9.19cmAO Mean GR.3mmHg LESLI (VMAX)1.42rc6AWT (VTI)1.66cm2 Mitral Valve MV E Mkdnfovt17.7cm/sMV E Peak Gr.107mmHg MV DECEL [id number] A Ydgxpbgd92.3cm/s MV DUH08pmJ/A Ratio2.4 MVA (PHT)5.31cm2 TDI E/Lateral E'17.2E/Medial E'11.9 Pulmonary Valve PV Peak Djmfhiiw62.0cm/sPV Peak Grad.2mmHg Tricuspid Valve TR P. Nazrivdc227wh/sRAP DRLXKKEB21voFv TR Peak Gr.91kkJyFMFD21vzSt Pulmonary Vein S1 Okhhklvx23.5cm/sD2 Pdzikyaj06.9cm/s LEFT VENTRICLE The left ventricle is normal size. There is mild to moderate concentric left ventricular hypertrophy. Left ventricle systolic function is severely impaired. The Ejection Fraction is 30-35%. There is monica bal hypokinesis of the left ventricle, septal motion suggestive of conduction defect. Tissue Doppler imaging reveals moderate left ventricular diastolic dysfunction. RIGHT VENTRICLE The right ventricle is normal size. The right ventricular systolic function is normal. ATRIA The left atrium size is normal. The right atrium size is normal. The interatrial septum is intact wit h no evidence for an atrial septal defect or patent foramen ovale as noted on 2-D or Doppler imaging. AORTIC VALVE The aortic valve is mildly thickened and calcified but is trileaflet but opens well. Doppler and Belzon[place] r Flow revealed no significant aortic regurgitation. There is no significant aortic valvular stenosis . There is no aortic valvular vegetation. MITRAL VALVE The mitral valve is thickened but opens well. There is no evidence of mitral valve prolapse. There is no mitral valve stenosis. Doppler and Color-flow revealed mild to moderate mitral regurgitation. TRICUSPID VALVE The tricuspid valve leaflets are thickened , but open well. There is severe pulmonary hypertension.Th e PA pressure was estimated at 71 mmHg. Doppler and Color Flow revealed moderate tricuspid regurgitat ion. There is no tricuspid valve prolapse or vegetation. There is no tricuspid valve stenosis. PULMONIC VALVE The pulmonic valve is not well visualized. Doppler and Color Flow revealed trace pulmonic valvular re gurgitation. There is no pulmonic valvular stenosis. GREAT VESSELS The aortic root is normal in size. The IVC is dilated and collapses <50% with inspiration. PERICARDIAL EFFUSION There is no pleural effusion. There is no evidence of significant pericardial effusion. Critical Notification Critical Value: No <Conclusion> Left ventricle systolic function is severely impaired. The Ejection Fraction is 30-35%. There is global hypokinesis of the left ventricle, septal motion suggestive of conduction defect. Tissue Doppler imaging reveals moderate left ventricular diastolic dysfunction. Doppler and Color-flow revealed mild to moderate mitral regurgitation. There is severe pulmonary hypertension.The PA pressure was estimated at 71 mmHg. Doppler and Color Fl ow revealed moderate tricuspid regurgitation. Signed by : Sarwat Lentz, Electronically Approved : 04/16/2018 17:17:56
[2018-04-16 18:50] VITALS: BP 144/63
[2018-04-16] MEDS: LABETALOL HCL 200 MG TABLET PO SCH (20:33)
[2018-04-16 23:09] VITALS: BP 126/60
[2018-04-17 03:17] LABS: HEMOGLOBIN A1C 5.4 % (4.8-5.6)
[2018-04-17 03:46] VITALS: BP 163/89
[2018-04-17 05:52] LABS: BASO % 0 % (0-3); EOS # 0.2 x10^3/uL (0.0-0.7); EOS % 3 % (0-3); HEMATOCRIT 36.9 % (36.0-47.0); HEMOGLOBIN 12.4 g/dL (12.0-15.5); LYMPH # 1.5 x10^3/uL (1.0-4.8); LYMPH % 19 % (24-48); MEAN CORPUSCULAR HEMOGLOBIN 28 pg (25-35); MEAN CORPUSCULAR HGB CONC 34 g/dL (31-37); MEAN CORPUSCULAR VOLUME 84 fL (79-100); MONO # 0.6 x10^3/uL (0.0-1.1); MONO % 7 % (0-9); NEUT # 5.7 x10^3uL (1.8-7.7); NEUT % 71 % (31-73); PLATELET COUNT 280 x10^3/uL (140-400); RED BLOOD COUNT 4.38 x10^6/uL (3.50-5.40); RED CELL DISTRIBUTION WIDTH 16.5 % (11.5-14.5)
[2018-04-17 06:12] LABS: CALCIUM 8.9 mg/dL (8.5-10.1); GFR 66.7; POTASSIUM 3.4 mmol/L (3.5-5.1)
[2018-04-17 06:15] LABS: CHOLESTEROL/HDL RATIO 3.1
[2018-04-17 07:00] VITALS: BP 169/81
[2018-04-17] MEDS: IPRATRPIUM/ALBUTEROL 0.5/2.5MG 3 ML NEBU. NEB SCH ×4 (07:42→19:49)
[2018-04-17] MEDS ORDERED: REGADENOSON 0.4 MG/5 ML DISP.SYRIN. IV ONE (07:45)
[2018-04-17] MEDS: LABETALOL HCL 200 MG TABLET PO SCH (09:42)
[2018-04-17] MEDS: FUROSEMIDE 40 MG/4 ML VIAL. IVP SCH (09:43)
[2018-04-17 11:00] VITALS: BP 151/77
[2018-04-17] MEDS ORDERED: POTASSIUM CHLORIDE 20 MEQ TABLET.ER. PO ONE (11:30)
--- NOTE | 2018-04-17 11:46 | RAD ---
MR#: [id number] Date of Study: 04/17/2018 Ordering Physician: RAIMUNDO HOOK, Referring Physician: ROXANNA CORRIGAN Tech: RT Karol (R) (N) APPROVED REPORT Test Type: Pharmacological Stress Nurse/Tech: Danica Galo RN Test Indications: chest pressure, dyspnea Cardiac History: HTN, Smoker Medications: See Electronic Medical Record Medical History: See Electronic Medical Record Resting ECG: SR, inverted T wave Resting Heart Rate: 79 bpm Resting Blood Pressure: 168/85mmHg Pretest Chest Pain: No chest pain Nurse/Tech Notes Lungs CTA, S1S2 Consent: The procedure was explained to the patient in lay terms. Informed consent was witnessed. Darwin eout was entered into [employer]. History and Stress Test performed by Danica Galo RN Pharm. Details Pharmacologic stress testing was performed using 0.4mg per 5ml of regadenoson given intravenously ove r 7-10 seconds. Stress Symptoms dyspnea, stomach cramps POST EXERCISE Reason for Termination: Infusion complete Max HR: 95 bpm Max Blood Pressure: 168/87mmHg Blood Pressure response to exercise: Normal blood pressure response during stress. Heart Rate response to exercise: normal response Chest Pain: No. Arrhythmia: No. ST Change: No. INTERPRETATION Stress EKG Conclusion: No evidence of stress induced EKG changes. Imaging Protocol IMAGE PROTOCOL: Rest Tc-99m/stress Tc-99m 1 day Rest: Stress: Viability: Radiopharm.Tc99m NmymvoziwNs55j Sestamibi Tejp29hMm 34.6mCi Duration 15min. 13min. Img Date 04/17/2018 04/17/2018 Inj-Img Vloy71kpg. 50min. Rest Admin Site:IV - Left AntecubitalAdministrator:RT Karol (R)(N) Stress Admin Site: IV - Left AntecubitalAdministrator: RT Nila (R)(N) STRESS DATA End Diast. Vol.196.0mlLVEDV index YHP947.0ml End Syst. Vol.142.0mlLVESV index BSA78.0ml Myocardial Ybwu462.0gEject. Xtmpiucj51.0% Stress Scores Regional WT3.00Summed WT43.00 Regional WM1.00Summed WM34.00 LV Perfusion There is a mild perfusion defect along the anterior and inferior rangel in a pattern most consistent w ith non-ischemic CMP. No significant areas of ischemia are noted. Wall Motion Severe LV dysfunction. EF 28% with global hypokinesis. LV Perf. Quant 17 Seg. SSS5.00 17 Seg. SRS2.00 17 Seg. SDS4.00 Stress Defect Extent (% LAD)11.30Rest Defect Extent (% LAD)7.50Rev. Defect Extent (% LAD)8.10 Stress Defect Extent (% LCX) 25.00Rest Defect Extent (% LCX)1.30Rev. Defect Extent (% LCX)21.30 Stress Defect Extent (% RCA)0.00Rest Defect Extent (% RCA)1.10Rev. Defect Extent (% RCA)0.00 Stress Defect Extent (% SEAN)11.10Rest Defect Extent (% SEAN)5.90Rev. Defect Extent (% SEAN)6.50 Other Information Quality:Fair Risk Assessment: High Risk Conclusion 1. No evidence of stress induced EKG changes 2. Mild anterior/inferior perfusion defect mostly appear to FIXED without significant ischemia. 3. Severe LV dysfunction. EF less than 30% 4. High risk for future CV events. Signed by : Sarwat Lentz, Electronically Approved : 04/17/2018 11:46:00
--- NOTE | 2018-04-17 14:25 | PDOC ---
PROGRESS NOTES Chief Complaint Chief Complaint HTN urgency sob, copd with tobaccoism acute systolic chf exacerbation EF 30% morbid obesity chest pain, 2/2 chf possibly plan:fu with card mpi done add labetolol as per card dc amlodipine, add lisinopril, asa add lasix 40mg iv daily replete K echo done dvt ppx talked to son, at bedside History of Present Illness History of Present Illness ROS: no fever, chills, sob or chest pain feels better had sob and chest pain, neg CE htn better to 160s wants go home, has cruise on Vitals Vitals Vital Signs Date Time Temp Pulse Resp B/P (MAP) Pulse Ox O2 Delivery O2 Flow Rate FiO2 04/17/18 12:00 Room Air 04/17/18 11:00 98.4 74 20 151/77 (101) 98 98.4 Physical Exam General: Alert, Oriented X3, Cooperative, No acute distress Heart: Normal S1, Normal S2, No murmurs, Other (no edema) Lungs: Crackles (bl basilar mild crackles) Abdomen: Soft Extremities: Normal pulses Skin: No rashes Labs LABS Laboratory Tests Test 04/17/18 04:40 White Blood Count 8.0 x10^3/uL (4.0-11.0) Red Blood Count 4.38 x10^6/uL (3.50-5.40) Hemoglobin 12.4 g/dL (12.0-15.5) Hematocrit 36.9 % (36.0-47.0) Mean Corpuscular Volume 84 fL (79-100) Mean Corpuscular Hemoglobin 28 pg (25-35) Mean Corpuscular Hemoglobin Concent 34 g/dL (31-37) Red Cell Distribution Width 16.5 % (11.5-14.5) Platelet Count 280 x10^3/uL (140-400) Neutrophils (%) (Auto) 71 % (31-73) Lymphocytes (%) (Auto) 19 % (24-48) Monocytes (%) (Auto) 7 % (0-9) Eosinophils (%) (Auto) 3 % (0-3) Basophils (%) (Auto) 0 % (0-3) Neutrophils # (Auto) 5.7 x10^3uL (1.8-7.7) Lymphocytes # (Auto) 1.5 x10^3/uL (1.0-4.8) Monocytes # (Auto) 0.6 x10^3/uL (0.0-1.1) Eosinophils # (Auto) 0.2 x10^3/uL (0.0-0.7) Basophils # (Auto) 0.0 x10^3/uL (0.0-0.2) Sodium Level 141 mmol/L (136-145) Potassium Level 3.4 mmol/L (3.5-5.1) Chloride Level 103 mmol/L (98-107) Carbon Dioxide Level 27 mmol/L (21-32) Anion Gap 11 (6-14) Blood Urea Nitrogen 12 mg/dL (7-20) Creatinine 1.0 mg/dL (0.6-1.0) Estimated GFR (Cockcroft-Gault) 66.7 Glucose Level 118 mg/dL (70-99) Calcium Level 8.9 mg/dL (8.5-10.1) Triglycerides Level 81 mg/dL (0-150) Cholesterol Level 155 mg/dL (0-200) LDL Cholesterol, Calculated 89 mg/dL (0-100) VLDL Cholesterol, Calculated 16 mg/dL (0-40) Non-HDL Cholesterol Calculated 105 mg/dL (0-129) HDL Cholesterol 50 mg/dL (40-60) Cholesterol/HDL Ratio 3.1 Comment Review of Relevant I have reviewed the following items alex (where applicable) has been applied. Labs Laboratory Tests Test 04/15/18 19:20 04/16/18 04:00 04/17/18 04:40 Troponin I Quantitative < 0.017 ng/mL (0.000-0.055) White Blood Count 7.7 x10^3/uL (4.0-11.0) 8.0 x10^3/uL (4.0-11.0) Red Blood Count 4.58 x10^6/uL (3.50-5.40) 4.38 x10^6/uL (3.50-5.40) Hemoglobin 13.0 g/dL (12.0-15.5) 12.4 g/dL (12.0-15.5) Hematocrit 38.6 % (36.0-47.0) 36.9 % (36.0-47.0) Mean Corpuscular Volume 84 fL (79-100) 84 fL (79-100) Mean Corpuscular Hemoglobin 28 pg (25-35) 28 pg (25-35) Mean Corpuscular Hemoglobin Concent 34 g/dL (31-37) 34 g/dL (31-37) Red Cell Distribution Width 16.4 % (11.5-14.5) 16.5 % (11.5-14.5) Platelet Count 279 x10^3/uL (140-400) 280 x10^3/uL (140-400) Neutrophils (%) (Auto) 72 % (31-73) 71 % (31-73) Lymphocytes (%) (Auto) 17 % (24-48) 19 % (24-48) Monocytes (%) (Auto) 8 % (0-9) 7 % (0-9) Eosinophils (%) (Auto) 2 % (0-3) 3 % (0-3) Basophils (%) (Auto) 0 % (0-3) 0 % (0-3) Neutrophils # (Auto) 5.6 x10^3uL (1.8-7.7) 5.7 x10^3uL (1.8-7.7) Lymphocytes # (Auto) 1.3 x10^3/uL (1.0-4.8) 1.5 x10^3/uL (1.0-4.8) Monocytes # (Auto) 0.6 x10^3/uL (0.0-1.1) 0.6 x10^3/uL (0.0-1.1) Eosinophils # (Auto) 0.2 x10^3/uL (0.0-0.7) 0.2 x10^3/uL (0.0-0.7) Basophils # (Auto) 0.0 x10^3/uL (0.0-0.2) 0.0 x10^3/uL (0.0-0.2) Sodium Level 141 mmol/L (136-145) 141 mmol/L (136-145) Potassium Level 3.7 mmol/L (3.5-5.1) 3.4 mmol/L (3.5-5.1) Chloride Level 105 mmol/L (98-107) 103 mmol/L (98-107) Carbon Dioxide Level 29 mmol/L (21-32) 27 mmol/L (21-32) Anion Gap 7 (6-14) 11 (6-14) Blood Urea Nitrogen 7 mg/dL (7-20) 12 mg/dL (7-20) Creatinine 0.9 mg/dL (0.6-1.0) 1.0 mg/dL (0.6-1.0) Estimated GFR (Cockcroft-Gault) 75.3 66.7 BUN/Creatinine Ratio 8 (6-20) Glucose Level 100 mg/dL (70-99) 118 mg/dL (70-99) Hemoglobin A1c 5.4 % (4.8-5.6) Calcium Level 8.5 mg/dL (8.5-10.1) 8.9 mg/dL (8.5-10.1) Total Bilirubin 0.4 mg/dL (0.2-1.0) Aspartate Amino Transf (AST/SGOT) 12 U/L (15-37) Alanine Aminotransferase (ALT/SGPT) 23 U/L (14-59) Alkaline Phosphatase 79 U/L (46-116) Total Protein 6.9 g/dL (6.4-8.2) Albumin 3.3 g/dL (3.4-5.0) Albumin/Globulin Ratio 0.9 (1.0-1.7) Triglycerides Level 81 mg/dL (0-150) Cholesterol Level 155 mg/dL (0-200) LDL Cholesterol, Calculated 89 mg/dL (0-100) VLDL Cholesterol, Calculated 16 mg/dL (0-40) Non-HDL Cholesterol Calculated 105 mg/dL (0-129) HDL Cholesterol 50 mg/dL (40-60) Cholesterol/HDL Ratio 3.1 Laboratory Tests Test 04/17/18 04:40 White Blood Count 8.0 x10^3/uL (4.0-11.0) Red Blood Count 4.38 x10^6/uL (3.50-5.40) Hemoglobin 12.4 g/dL (12.0-15.5) Hematocrit 36.9 % (36.0-47.0) Mean Corpuscular Volume 84 fL (79-100) Mean Corpuscular Hemoglobin 28 pg (25-35) Mean Corpuscular Hemoglobin Concent 34 g/dL (31-37) Red Cell Distribution Width 16.5 % (11.5-14.5) Platelet Count 280 x10^3/uL (140-400) Neutrophils (%) (Auto) 71 % (31-73) Lymphocytes (%) (Auto) 19 % (24-48) Monocytes (%) (Auto) 7 % (0-9) Eosinophils (%) (Auto) 3 % (0-3) Basophils (%) (Auto) 0 % (0-3) Neutrophils # (Auto) 5.7 x10^3uL (1.8-7.7) Lymphocytes # (Auto) 1.5 x10^3/uL (1.0-4.8) Monocytes # (Auto) 0.6 x10^3/uL (0.0-1.1) Eosinophils # (Auto) 0.2 x10^3/uL (0.0-0.7) Basophils # (Auto) 0.0 x10^3/uL (0.0-0.2) Sodium Level 141 mmol/L (136-145) Potassium Level 3.4 mmol/L (3.5-5.1) Chloride Level 103 mmol/L (98-107) Carbon Dioxide Level 27 mmol/L (21-32) Anion Gap 11 (6-14) Blood Urea Nitrogen 12 mg/dL (7-20) Creatinine 1.0 mg/dL (0.6-1.0) Estimated GFR (Cockcroft-Gault) 66.7 Glucose Level 118 mg/dL (70-99) Calcium Level 8.9 mg/dL (8.5-10.1) Triglycerides Level 81 mg/dL (0-150) Cholesterol Level 155 mg/dL (0-200) LDL Cholesterol, Calculated 89 mg/dL (0-100) VLDL Cholesterol, Calculated 16 mg/dL (0-40) Non-HDL Cholesterol Calculated 105 mg/dL (0-129) HDL Cholesterol 50 mg/dL (40-60) Cholesterol/HDL Ratio 3.1 Medications Current Medications Nitroglycerin/ Dextrose 250 ml @ 0 mls/hr 1X ONCE IV Last administered on 04/15at 12:18; Start 04/15/18 at 12:00; Stop 04/15/18 at 12:01; Status DC Iohexol (Omnipaque 300 Mg/ml) 75 ml 1X ONCE IV Last administered on 04/15/18at 13:20; Start 04/15/18 at 13:30; Stop 04/15/18 at 13:31; Status DC Info (CONTRAST GIVEN -- Rx MONITORING) 1 each PRN DAILY PRN MC SEE COMMENTS; Start 04/15/18 at 13:15; Stop 04/17/18 at 13:14; Status DC Acetaminophen (Tylenol) 650 mg PRN Q4HRS PRN PO FEVER Last administered on 04/15at 16:29; Start 04/15/18 at 13:45; Stop 04/16/18 at 13:44; Status DC Throat Lozenges (Cepacol Sore Throat Lozenge) 1 saul PRN Q4HRS PRN PO SORE THROAT Last administered on 04/15/18at 16:43; Start 04/15/18 at 16:30 Furosemide (Lasix) 60 mg 1X ONCE IVP Last administered on 04/15/18at 19:10; Start 04/15/18 at 19:30; Stop 04/15/18 at 19:31; Status DC Albuterol/ Ipratropium (Duoneb) 3 ml RTQID NEB Last administered on 04/17/18at 11:58; Start 04/15/18 at 20:00 Labetalol HCl (Trandate) 100 mg BID PO Last administered on 04/16/18at 10:58; Start 04/16/18 at 11:00; Stop 04/16/18 at 15:25; Status DC Acetaminophen (Tylenol) 650 mg PRN Q6HRS PRN PO FEVER; Start 04/16/18 at 15:30 Ondansetron HCl (Zofran) 4 mg PRN Q6HRS PRN IV NAUSEA/VOMITING; Start 04/16/18 at 15:30 Morphine Sulfate (Morphine Sulfate) 2 mg PRN Q2HR PRN IV MODERATE TO SEVERE PAIN; Start 04/16/18 at 15:30 Tramadol HCl (Ultram) 50 mg PRN Q6HRS PRN PO MILD TO MODERATE PAIN; Start 04/16 at 15:30 Docusate Sodium (Colace) 100 mg PRN DAILY PRN PO CONSTIPATION; Start 04/16/18 at 15:30 Labetalol HCl (Normodyne Iv Push) 20 mg PRN Q2HR PRN IVP HYPERTENSION, SEE COMMENTS; Start 04/16/18 at 15:30 Labetalol HCl (Trandate) 200 mg BID PO Last administered on 04/17/18at 09:42; Start 04/16/18 at 21:00 Enoxaparin Sodium (Lovenox 40mg Syringe) 40 mg Q24H SQ Last administered on at 16:47; Start 04/16/18 at 16:00 Furosemide (Lasix) 40 mg DAILY IVP Last administered on 04/17/18at 09:43; Start 04/16/18 at 16:00 Amlodipine Besylate (Norvasc) 5 mg DAILYWSUP PO Last administered on 04/16/18at 16:43; Start 04/16/18 at 17:00 Labetalol HCl (Trandate) 100 mg 1X ONCE PO Last administered on 04/16/18at 16: 43; Start 04/16/18 at 15:30; Stop 04/16/18 at 15:31; Status DC Regadenoson (Lexiscan) 0.4 mg 1X ONCE IV Last administered on 04/17/18at 09:00 ; Start 04/17/18 at 07:45; Stop 04/17/18 at 07:47; Status DC Potassium Chloride (Klor-Con) 40 meq 1X ONCE PO Last administered on at 11:50; Start 04/17/18 at 11:30; Stop 04/17/18 at 11:31; Status DC Vitals/I & O Vital Sign - Last 24 Hours 04/16/18 04/16/18 04/16/18 04/16/18 15:00 16:18 16:43 16:43 Temp 98.2 98.2 Pulse 82 88 88 Resp 18 B/P (MAP) 174/89 (117) 180/102 180/102 Pulse Ox 98 O2 Delivery Room Air Room Air 04/16/18 04/16/18 04/16/18 04/16/18 18:50 20:06 20:23 20:33 Temp 97.8 97.8 Pulse 76 76 Resp 20 B/P (MAP) 144/63 (90) 144/63 Pulse Ox 97 95 O2 Delivery Room Air Room Air Room Air 04/16/18 04/17/18 04/17/18 04/17/18 23:09 03:46 07:00 07:30 Temp 98.3 98.2 98.3 98.3 98.2 98.3 Pulse 75 73 76 Resp 18 18 16 B/P (MAP) 126/60 (82) 163/89 (113) 169/81 (110) Pulse Ox 94 99 100 O2 Delivery Room Air Room Air Room Air Room Air 04/17/18 04/17/18 04/17/18 04/17/18 07:43 09:42 11:00 12:00 Temp 98.4 98.4 Pulse 83 74 Resp 20 B/P (MAP) 169/81 151/77 (101) Pulse Ox 99 98 O2 Delivery Room Air Room Air Room Air Intake and Output 04/16/18 04/16/18 04/17/18 15:00 23:00 07:00 Intake Total 550 ml 60 ml Output Total 1300 ml 300 ml Balance -750 ml -240 ml BRIANA PROCTOR MD Apr 17, 2018 14:25
[2018-04-17] MEDS ORDERED: LISINOPRIL 20 MG TABLET PO ONE (14:30)
--- NOTE | 2018-04-17 14:31 | PDOC ---
SELENA GLOVER HAND II CUTTER 04/17/18 1431: CARDIO Progress Notes Date and Time Date of Service 04/17/2018 Time of Evaluation 1340 Subjective Subjective: No Chest Pain, No shortness of breath, No Palpitations Vitals Vitals Vital Signs Date Time Temp Pulse Resp B/P (MAP) Pulse Ox O2 Delivery O2 Flow Rate FiO2 04/17/18 12:00 Room Air 04/17/18 11:00 98.4 74 20 151/77 (101) 98 98.4 Weight Weight [ ] Input and Output Intake and Output Intake and Output 04/17/18 07:00 Intake Total 610 ml Output Total 1600 ml Balance -990 ml Intake Oral 610 ml Output Urine Total 1600 ml Laboratory Labs Laboratory Tests Test 04/17/18 04:40 White Blood Count 8.0 x10^3/uL (4.0-11.0) Red Blood Count 4.38 x10^6/uL (3.50-5.40) Hemoglobin 12.4 g/dL (12.0-15.5) Hematocrit 36.9 % (36.0-47.0) Mean Corpuscular Volume 84 fL (79-100) Mean Corpuscular Hemoglobin 28 pg (25-35) Mean Corpuscular Hemoglobin Concent 34 g/dL (31-37) Red Cell Distribution Width 16.5 % (11.5-14.5) Platelet Count 280 x10^3/uL (140-400) Neutrophils (%) (Auto) 71 % (31-73) Lymphocytes (%) (Auto) 19 % (24-48) Monocytes (%) (Auto) 7 % (0-9) Eosinophils (%) (Auto) 3 % (0-3) Basophils (%) (Auto) 0 % (0-3) Neutrophils # (Auto) 5.7 x10^3uL (1.8-7.7) Lymphocytes # (Auto) 1.5 x10^3/uL (1.0-4.8) Monocytes # (Auto) 0.6 x10^3/uL (0.0-1.1) Eosinophils # (Auto) 0.2 x10^3/uL (0.0-0.7) Basophils # (Auto) 0.0 x10^3/uL (0.0-0.2) Sodium Level 141 mmol/L (136-145) Potassium Level 3.4 mmol/L (3.5-5.1) Chloride Level 103 mmol/L (98-107) Carbon Dioxide Level 27 mmol/L (21-32) Anion Gap 11 (6-14) Blood Urea Nitrogen 12 mg/dL (7-20) Creatinine 1.0 mg/dL (0.6-1.0) Estimated GFR (Cockcroft-Gault) 66.7 Glucose Level 118 mg/dL (70-99) Calcium Level 8.9 mg/dL (8.5-10.1) Triglycerides Level 81 mg/dL (0-150) Cholesterol Level 155 mg/dL (0-200) LDL Cholesterol, Calculated 89 mg/dL (0-100) VLDL Cholesterol, Calculated 16 mg/dL (0-40) Non-HDL Cholesterol Calculated 105 mg/dL (0-129) HDL Cholesterol 50 mg/dL (40-60) Cholesterol/HDL Ratio 3.1 Physical Exam HEENT: Neck Supple W Full Motion Chest: Symmetric LUNGS: Clear to Auscultation Heart: S1S2, RRR (SR) Abdomen: Soft N/T Extremities: No Edema, No Calf Tenderness Neurology: alert, oriented, follow commands Assessment Assessment 1. Malignant HTN: mainly due to med noncompliance. Improving 2. Acute likely on chronic diastolic/systolic CHF: now compensated. EF 30-35% 3. 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 4. Presumed CAD: MPI noted with mild anterior/inferior perfusion defect mostly appear to FIXED without significant ischemia. CP free. 5. Tobaccoism Recommendations 1. Med changes. Convert to coreg from labetolol. Add lisinopril. Continue norvasc. Start on ASA and lipitor. 2. Lasix therapy with K supplement. 3. Smoking cessation, dietitian consult. Wt loss, diet modification. 4. Reeval in 3 months for AICD need. 2L FR, daily wt, home BP monitoring. Anticipate DC tomorrow. Follow up in 4 weeks. ALEKS THOMAS MD 04/17/18 2100: CARDIO Progress Notes Assessment Assessment Patient seen and examined. Agree with HOTEL OR MOTEL RECEPTIONIST's assessment and plan. Ac on chr systolic heart failure better compensated Lexiscan MPI did not show any significant ischemia Plan repeat echo in 3 months to evaluate need for AICD SELENA GLOVER HAND II CUTTER Apr 17, 2018 14:31 ALEKS THOMAS MD Apr 17, 2018 21:00
[2018-04-17 15:00] VITALS: BP 167/83
[2018-04-17] MEDS: CARVEDILOL 12.5 MG TABLET. PO SCH (17:44)
[2018-04-17] MEDS: ENOXAPARIN 40 MG/0.4 ML SYRINGE. SQ SCH (17:46)
[2018-04-17 19:25] VITALS: BP 168/77
[2018-04-17] MEDS ORDERED: ATORVASTATIN CALCIUM 10 MG TABLET. PO SCH (21:00)
[2018-04-17 23:12] VITALS: BP 154/73
[2018-04-18 03:20] VITALS: BP 172/98
[2018-04-18 05:20] LABS: BASO % 1 % (0-3); EOS # 0.3 x10^3/uL (0.0-0.7); EOS % 4 % (0-3); HEMOGLOBIN 12.1 g/dL (12.0-15.5); LYMPH # 1.8 x10^3/uL (1.0-4.8); LYMPH % 22 % (24-48); MEAN CORPUSCULAR HEMOGLOBIN 28 pg (25-35); MEAN CORPUSCULAR HGB CONC 34 g/dL (31-37); MEAN CORPUSCULAR VOLUME 84 fL (79-100); MONO # 0.6 x10^3/uL (0.0-1.1); MONO % 8 % (0-9); NEUT # 5.5 x10^3uL (1.8-7.7); NEUT % 67 % (31-73); PLATELET COUNT 273 x10^3/uL (140-400); RED BLOOD COUNT 4.26 x10^6/uL (3.50-5.40); RED CELL DISTRIBUTION WIDTH 16.7 % (11.5-14.5); WHITE BLOOD COUNT 8.3 x10^3/uL (4.0-11.0)
[2018-04-18 05:41] LABS: CALCIUM 8.5 mg/dL (8.5-10.1); GFR 66.7; POTASSIUM 3.8 mmol/L (3.5-5.1)
[2018-04-18] MEDS: IPRATRPIUM/ALBUTEROL 0.5/2.5MG 3 ML NEBU. NEB SCH ×2 (06:59→11:19)
[2018-04-18 07:00] VITALS: BP 180/89
[2018-04-18] MEDS ORDERED: ASPIRIN ENTERIC COATED 81 MG TABLET.DR. PO SCH ×2 (08:00)
[2018-04-18] MEDS ORDERED: POTASSIUM CHLORIDE 20 MEQ TABLET.ER. PO SCH (08:00)
[2018-04-18] MEDS: CARVEDILOL 12.5 MG TABLET. PO SCH (08:56)
[2018-04-18] MEDS ORDERED: FUROSEMIDE 40 MG TABLET. PO SCH (09:00)
[2018-04-18] MEDS ORDERED: LISINOPRIL 20 MG TABLET PO SCH (09:00)
[2018-04-18 10:45] VITALS: BP 166/87
--- NOTE | 2018-04-18 12:16 | PDOC3 ---
Discharge Summary [facility] Date of Admission: Apr 15, 2018 Discharge Date: Apr 18, 2018 Admitting Diagnosis HTN urgency sob, copd with tobaccoism acute systolic chf exacerbation EF 30% morbid obesity chest pain, 2/2 chf possibly CONSULTS card Brief Hospital Course Ms. Ashraf is a 68 old F, NOT seeing any doc for years, comes for sob, Echo showed EF 30%. BP >200. need cardine drip. now BP controlled better with po meds, no chest pain or sob. dc home with coreg, lisinopril, lasix. pt has a trip tmr, asked pt not to go if sob or BP >160. dc time 35min. General: Alert, Oriented X3, Cooperative, No acute distress Heart: Normal S1, Normal S2, No murmurs, Other (no edema) Lungs: Crackles (bl basilar mild crackles) Abdomen: Soft Extremities: Normal pulses, no edema Skin: No rashes Disposition home CONDITION AT DISCHARGE: Improved BRIANA PROCTOR MD Apr 18, 2018 12:16
[2018-04-18] MEDS ORDERED: ATOR10TA60 PO (12:18)
[2018-04-18] MEDS ORDERED: ASPI-612 PO (12:18)
[2018-04-18] MEDS ORDERED: FURO40TA4 PO (12:18)
[2018-04-18] MEDS ORDERED: CARV12.52 PO (12:18)
[2018-04-18] MEDS ORDERED: POTA20TA4 PO (12:18)
[2018-04-18] MEDS ORDERED: LISI-130 PO (12:18)
[2018-04-19] MEDS ORDERED: LISINOPRIL 20 MG TABLET PO SCH (09:00)
== END 2018-04-18 14:57 | disposition home or self-care (01) | DRG 304 ==
LOC: ER 11:06 → 2 SOUTH 12:50
PROVIDERS: ADMIT Internal Medicine; ATTEND Internal Medicine
DX: I16.0 Hypertensive urgency (principal); I50.43 Acute on chronic combined systolic (congestive) and diastolic (congestive) heart failure; I42.9 Cardiomyopathy, unspecified; J98.11 Atelectasis; E66.01 Morbid (severe) obesity due to excess calories; F17.210 Nicotine dependence, cigarettes, uncomplicated; I15.8 Other secondary hypertension; I25.10 Atherosclerotic heart disease of native coronary artery without angina pectoris; J44.9 Chronic obstructive pulmonary disease, unspecified; Z82.3 Family history of stroke; Z82.49 Family history of ischemic heart disease and other diseases of the circulatory system; Z90.49 Acquired absence of other specified parts of digestive tract; Z83.3 Family history of diabetes mellitus; Z91.14 Patient's other noncompliance with medication regimen; Z91.19 Patient's noncompliance with other medical treatment and regimen; Z98.51 Tubal ligation status; Z79.899 Other long term (current) drug therapy; Z68.32 Body mass index [BMI] 32.0-32.9, adult
CPT/HCPCS: 36415; 71045; 71275; 78452; 80048; 80053; 80061; 80076; 81001; 83036; 83735; 83880; 84484; 85025; 85610; 85730; 93005; 93017; 93306; 94640; 94760; 96365; 96374; 96375; 96376; 99406; A9500; J1650; J1940; J2785; J3490; J7620; Q9967; 99285-25

== ENCOUNTER → 2018-08-08 | Outpatient (CLI) | payer MEDICARE ==
[~2018-08-08] MED LIST: ASPI-612 PO; ATOR10TA60 PO; CARV12.511 PO; FURO40TA4 PO; LISI-130 PO; POTA20TA4 PO
--- NOTE | 2018-08-08 11:36 | CARD ---
MR#: [id number] Date of Study: 08/08/2018 Ordering Physician: ALEKS MENDEZ, Referring Physician: ALEKS MENDEZ Tech: Penelope Duke RDCS APPROVED REPORT EXAM: Two-dimensional and M-mode echocardiogram with Doppler and color Doppler. Other Information Quality : AverageHR: 76bpm Rhythm : NSR INDICATION Chest Pain 2D DIMENSIONS RVDd2.9 (2.9-3.5cm)IVSd1.1 (0.7-1.1cm) Aortic Root(2D)2.9 (2.0-3.7cm)LVDd4.9 (3.9-5.9cm) LVOT Diameter1.9 (1.8-2.4cm)PWd1.0 (0.7-1.1cm) LVDs3.9 (2.5-4.0cm)FS (%) 21.3 % SV49.4 ml M-Mode DIMENSIONS Left Atrium(MM)3.87 (2.5-4.0cm)Aortic Root2.93 (2.2-3.7cm) Aortic Valve AoV Peak Ihsan.129.3cm/sAoV VTI25.5cm AO Peak GR.6.7mmHgLVOT Peak Ihsan.81.8cm/s AO Mean GR.3mmHgAVA (VMAX)1.73cm2 LESLI (VTI)1.60cm2 Mitral Valve MV E Aqseupua72.5cm/sMV DECEL [id number] MV A Vpozedth74.2cm/sE/A Ratio0.7 MV A [id number] Pulmonary Valve PV Peak Zngttjwy56.8cm/s LEFT VENTRICLE The left ventricle is normal size. There is mild concentric left ventricular hypertrophy. The systoli c function is mildly impaired. Left ventricle systolic function is low normal. The Ejection Fraction is 50%. Transmitral Doppler flow pattern is Grade I-abnormal relaxation pattern. RIGHT VENTRICLE The right ventricle is normal size. There is normal right ventricular wall thickness. The right ventr icular systolic function is normal. ATRIA The left atrium size is normal. The right atrium size is normal. The interatrial septum is intact wit h no evidence for an atrial septal defect or patent foramen ovale as noted on 2-D or Doppler imaging. AORTIC VALVE The aortic valve is mildly calcified. The aortic valve is trileaflet. Doppler and Color Flow revealed no significant aortic regurgitation. There is no significant aortic valvular stenosis. MITRAL VALVE The mitral valve is thickened but opens well. There is no evidence of mitral valve prolapse. There is no mitral valve stenosis. Doppler and Color-flow revealed mild mitral regurgitation. TRICUSPID VALVE The tricuspid valve is normal in structure and function. Doppler and Color Flow revealed no tricuspid valve regurgitation noted. There is no tricuspid valve prolapse or vegetation. There is no tricuspid valve stenosis. PULMONIC VALVE Pulmonic valve not well visualized. GREAT VESSELS The aortic root is normal in size. The ascending aorta is normal in size. The IVC is normal in size a nd collapses >50% with inspiration. PERICARDIAL EFFUSION There is no evidence of significant pericardial effusion. Critical Notification Critical Value: No <Conclusion> The systolic function is mildly impaired. Left ventricle systolic function is low normal. The Ejection Fraction is 50%. Transmitral Doppler flow pattern is Grade I-abnormal relaxation pattern. Mild mitral regurgitation. There is no evidence of significant pericardial effusion. Signed by : Aleks Mendez, Electronically Approved : 08/08/2018 11:35:27
== END | disposition home or self-care (01) ==
LOC: ECHO 10:08
PROVIDERS: ATTEND Internal Medicine Cardiovascular Disease
DX: I34.0 Nonrheumatic mitral (valve) insufficiency (principal); I51.7 Cardiomegaly
CPT/HCPCS: 93306

== ENCOUNTER → 2018-08-16 | Outpatient (CLI) | payer MEDICARE ==
[2018-08-25 08:17] LABS: ALDOSTERONE 7.3 ng/dL (0.0-30.0)
== END | disposition home or self-care (01) ==
LOC: LAB 10:13
PROVIDERS: ATTEND Internal Medicine Cardiovascular Disease
DX: I10 Essential (primary) hypertension (principal); F17.210 Nicotine dependence, cigarettes, uncomplicated
CPT/HCPCS: 36415; 82088

== ENCOUNTER → 2018-08-23 | Outpatient (CLI) | payer MEDICARE ==
--- NOTE | 2018-08-23 12:58 | RAD ---
MR#: [id number] Date of Study: 08/23/2018 Ordering Physician: ALEKS THOMAS, Referring Physician: ALEKS THOMAS, Tech: Berto De Anda MBA, RDMS, RVT, RDCS, RTR APPROVED REPORT Patient Location: OUT-PATIENT Indications Uncontrolled HTN Renal Artery Doppler Right Renal Artery Left Renal Arter y Proximal 144.0/31.0 cm/secProximal 54.0/11.0 cm/sec Mid 141.0/30.0 cm/secMid 107.0/24.0 cm/sec Distal 143.0/24.0 cm/secDistal 91.0/16.0 cm/sec Renal/Aorta Ratio 0.87Renal/Aorta Ratio 0.64 Prox. Resistive Index 0.78Prox. Resistive Index 0.79 Mid Resistive Index 0.79Mid Resistive Index 0.77 Distal Resistive Index 0.83Distal Resistive Index 0.82 Rt. Segmental A. 20.0/6.0 cm/secLt. Segmental A. 31.0/5.0 cm/sec Renal Measurements RightLeft Kidney Zvcuni47.7 cm cmKidney Hjljav52.2 cm cm Right Additional FindingsLeft Additional Findings Aortic Doppler VelocityWaveform Distal Aorta 167.0 cm/sec Findings Grayscale images of the bilateral kidneys do not reveal any obvious pathology. Spectral waveforms of the right renal artery and the left renal artery demonstrated normal velocity p atterns. No focal high-grade stenosis identified. Renal to aortic ratios are within normal limits. Critical Notification Critical Value: No <Conclusion> 1. No significant renal artery stenosis identified bilaterally. Signed by : Sarwat Lentz, Electronically Approved : 08/23/2018 12:57:22
== END | disposition home or self-care (01) ==
LOC: US 07:06
PROVIDERS: ATTEND Internal Medicine Cardiovascular Disease
DX: I10 Essential (primary) hypertension (principal)
CPT/HCPCS: 93975

== ENCOUNTER → 2019-07-11 | Outpatient (CLI) | payer MEDICARE ==
--- NOTE | 2019-07-11 13:10 | CARD ---
MR#: [id number] Date of Study: 07/11/2019 Ordering Physician: ALEKS THOMAS, Referring Physician: ALEKS THOMAS Tech: Abbey Wu RDCS APPROVED REPORT EXAM: Two-dimensional and M-mode echocardiogram with Doppler and color Doppler. Other Information Quality : Good INDICATION Non-Ischemic Cardiomyopathy 2D DIMENSIONS RVDd2.3 (2.9-3.5cm)Left Atrium(2D)4.2 (1.6-4.0cm) IVSd1.3 (0.7-1.1cm)Aortic Root(2D)2.3 (2.0-3.7cm) LVDd5.0 (3.9-5.9cm)LVOT Diameter2.1 (1.8-2.4cm) PWd1.0 (0.7-1.1cm)LVDs3.6 (2.5-4.0cm) FS (%) 30.0 %SV63.7 ml LVEF(%)55.0 (>50%) Aortic Valve AoV Peak Ihsan.123.9cm/sAoV VTI28.0cm AO Peak GR.6.1mmHgLVOT Peak Ihsan.86.5cm/s LVOT VTI 20.24cmAO Mean GR.4mmHg LESLI (VMAX)2.64ch4RPE (VTI)2.49cm2 Mitral Valve MV E Kvwlzysw38.7cm/sMV DECEL [id number] MV A Idhkgbxu38.8cm/sMV [id number] E/A Ratio0.8MVA (PHT)3.71cm2 TDI E/Lateral E'20.3E/Medial E'20.3 Tricuspid Valve TR P. Ypsfunco105xt/sRAP [id number] TR Peak Gr.12dcXjTOCI20ixUm Pulmonary Vein S1 Aeqhiohu06.3cm/sD2 Yhigmblr14.9cm/s LEFT VENTRICLE The left ventricle is normal size. There is mild asymmetric septal left ventricular hypertrophy. The left ventricular systolic function is normal. The Ejection Fraction is 55-60%. There is normal LV seg mental wall motion. Transmitral Doppler flow pattern is Grade I-abnormal relaxation pattern. RIGHT VENTRICLE The right ventricle is normal size. The right ventricular systolic function is normal. ATRIA The left atrium is mildly dilated. The right atrium size is normal. The interatrial septum is intact with no evidence for an atrial septal defect or patent foramen ovale as noted on 2-D or Doppler imagi ng. AORTIC VALVE The aortic valve is calcified but opens well. Doppler and Color Flow revealed no significant aortic r egurgitation. There is no significant aortic valvular stenosis. MITRAL VALVE The mitral valve is normal in structure and function. There is no evidence of mitral valve prolapse. There is no mitral valve stenosis. Doppler and Color-flow revealed trace mitral regurgitation. TRICUSPID VALVE The tricuspid valve is normal in structure and function. Doppler and Color Flow revealed trace tricus pid regurgitation. The PA pressure was estimated at 21 mmHg. There is no tricuspid valve stenosis. PULMONIC VALVE The pulmonic valve is not well visualized. Doppler and Color Flow revealed no pulmonic valvular regur gitation. There is no pulmonic valvular stenosis. GREAT VESSELS The aortic root is normal in size. The ascending aorta is normal in size. The IVC is normal in size a nd collapses >50% with inspiration. PERICARDIAL EFFUSION There is no evidence of significant pericardial effusion. Critical Notification Critical Value: No <Conclusion> The left ventricular systolic function is normal. The Ejection Fraction is 55-60%. There is normal LV segmental wall motion. Transmitral Doppler flow pattern is Grade I-abnormal relaxation pattern. Trace mitral regurgitation. Trace tricuspid regurgitation. The PA pressure was estimated at 21 mmHg. There is no evidence of significant pericardial effusion. Signed by : Aleks Thomas, Electronically Approved : 07/11/2019 13:09:43
== END | disposition home or self-care (01) ==
LOC: ECHO 11:09
PROVIDERS: ATTEND Internal Medicine Cardiovascular Disease
DX: I35.8 Other nonrheumatic aortic valve disorders (principal); I11.9 Hypertensive heart disease without heart failure; I42.9 Cardiomyopathy, unspecified
CPT/HCPCS: 93306

== ENCOUNTER → 2020-11-16 | Outpatient (CLI) | payer MEDICARE ==
[~2020-11-16] MED LIST changes: -ASPI-612 PO; +ASPI-886 PO; +REGADENOSON 0.4 MG/5 ML DISP.SYRIN. IV ONE
--- NOTE | 2020-11-16 17:22 | RAD ---
MR#: [id number] Date of Study: 11/16/2020 Ordering Physician: ALEKS THOMAS, Referring Physician: ROXANNA MEJÍA Tech: RUIZ Goldsmith, ARRT (R) (N) APPROVED REPORT Test Type: Pharmacological Stress Nurse/Tech: Liberty Oconnor R.N. Test Indications: non ischemic cardiomyopathy Cardiac History: htn, smoker Medications: see ehr Medical History: see ehr Resting ECG: SR Resting Heart Rate: 58 bpm Resting Blood Pressure: 175/68mmHg Pretest Chest Pain: No chest pain Nurse/Tech Notes lungs cta, heart tones regular Consent: The procedure was explained to the patient in lay terms. Informed consent was witnessed. Darwin eout was entered into [employer]. History and Stress Test performed by RT Nila (R) (N) Pharm. Details Pharmacologic stress testing was performed using 0.4mg per 5ml of regadenoson given intravenously ove r 7-10 seconds. Stress Symptoms No chest pain or symptoms.Dyspnea POST EXERCISE Reason for Termination: Infusion complete Target HR: No Max HR: 95 bpm Max Blood Pressure: 153/69mmHg Chest Pain: No. Arrhythmia: No. ST Change: Yes. some minimal ST depression noted in V leads INTERPRETATION Stress EKG Conclusion: Baseline EKG showed sinus rhythm. Non-diagnostic changes at peak stress. No arrhythmias. Imaging Protocol IMAGE PROTOCOL: Rest Tc-99m/stress Tc-99m 1 day Rest: Stress: Viability: Radiopharm.Tc99m DazdnbpjnAl55i Sestamibi Ixoj72iJt 32mCi Img Date 11/16/2020 11/16/2020 Inj-Img Rqvg79pnq. 60min. Rest Admin Site:IV - Right AntecubitalAdministrator:RT Nila (R)(N) Stress Admin Site: IV - Right AntecubitalAdministrator: RT Nima Dotson)(N) STRESS DATA End Diast. Vol.71.0mlAv. Heart Rate74.0bpm End Syst. Vol.17.0mlCO Index BSA0.0L/min Myocardial Fkhm614.0gEject. Saydhmrz34.0% Stress Rates Pk. Fill Rate3.17EDV/secLVtime Pk. Fill 212.01msec Pk. Empty Rate4.89ESV/secLVtime Pk. Gktby134.47msec / Pk. Fill1.29EDV/sec Stress Scores Regional WT1.00Summed WT9.00 Regional WM0.00Summed WM0.00 Study quality was good. Left Ventricular size was Normal at Rest and Stress. Lung uptake was . Left Ventricular ejection fraction is 78%. The rest and stress images show normal perfusion, normal contraction and thickening. LV Perf. Quant 17 Seg. SSS0.00 17 Seg. SRS0.00 17 Seg. SDS0.00 Stress Defect Extent (% LAD)0.00Rest Defect Extent (% LAD)0.00Rev. Defect Extent (% LAD)0.00 Stress Defect Extent (% LCX) 0.00Rest Defect Extent (% LCX)0.00Rev. Defect Extent (% LCX)0.00 Stress Defect Extent (% RCA)0.00Rest Defect Extent (% RCA)0.00Rev. Defect Extent (% RCA)0.00 Stress Defect Extent (% SEAN)0.00Rest Defect Extent (% SEAN)0.00Rev. Defect Extent (% SEAN)0.00 Conclusion 1. Regadenoson cardioisotope stress test did not show any evidence of ischemia or infarct. 2. Normal left ventricular systolic function with ejection fraction calculated at 78%. 3. Low risk for cardiac events. Signed by : Aleks Thomas, Electronically Approved : 11/16/2020 17:22:30
== END ==
LOC: NM 09:00
PROVIDERS: ATTEND Internal Medicine Cardiovascular Disease
DX: I10 Essential (primary) hypertension (principal); I42.9 Cardiomyopathy, unspecified; Z87.891 Personal history of nicotine dependence
CPT/HCPCS: 78452; 93017; A9500; J2785

== ENCOUNTER → 2020-11-26 | Outpatient (CLI) | payer MEDICARE ==
[~2020-11-26] MED LIST changes: -REGADENOSON 0.4 MG/5 ML DISP.SYRIN. IV ONE
--- NOTE | 2020-11-26 14:43 | CARD ---
MR#: [id number] Date of Study: 11/26/2020 Ordering Physician: ALEKS THOMAS, Referring Physician: ALEKS THOMAS, Tech: Abbey Wu SERGE APPROVED REPORT EXAM: Two-dimensional and M-mode echocardiogram with Doppler and color Doppler. Other Information Quality : Good INDICATION Non-Ischemic Cardiomyopathy 2D DIMENSIONS RVDd3.0 (2.9-3.5cm)Left Atrium(2D)3.3 (1.6-4.0cm) IVSd1.6 (0.7-1.1cm)Aortic Root(2D)2.7 (2.0-3.7cm) LVDd3.7 (3.9-5.9cm)LVOT Diameter2.0 (1.8-2.4cm) PWd1.3 (0.7-1.1cm)LVDs2.8 (2.5-4.0cm) FS (%) 24.2 %SV28.9 ml LVEF(%)50.0 (>50%) Aortic Valve AoV Peak Ihsan.134.5cm/sAoV VTI23.7cm AO Peak GR.7.2mmHgLVOT Peak Ihsan.97.1cm/s AO Mean GR.4mmHgAVA (VMAX)2.28cm2 LESLI (VTI)2.40cm2 Mitral Valve MV E Qdoyuzts09.8cm/sMV DECEL PJGP191dw MV A Czkywfhd316.3cm/sE/A Ratio0.7 Tricuspid Valve TR P. Zimgchei087gh/sRAP IDSILPPV8kzJs TR Peak Gr.79rvLuBFVP87feRu Pulmonary Vein S1 Xikjkhrb06.0cm/sD2 Fsrijdci52.0cm/s LEFT VENTRICLE The left ventricle is normal size. There is mild to moderate concentric left ventricular hypertrophy. The left ventricular systolic function is normal and the ejection fraction is within normal range. T he Ejection Fraction is 55-60%. There is normal LV segmental wall motion. Transmitral Doppler flow pa ttern is Grade I-abnormal relaxation pattern. RIGHT VENTRICLE The right ventricle is normal size. The right ventricular systolic function is normal. ATRIA The left atrium size is normal. The right atrium size is normal. The interatrial septum is intact wit h no evidence for an atrial septal defect or patent foramen ovale as noted on 2-D or Doppler imaging. AORTIC VALVE The aortic valve is calcified but opens well. Doppler and Color Flow revealed no significant aortic r egurgitation. There is no significant aortic valvular stenosis. MITRAL VALVE The mitral valve is calcified but opens well. Mitral annular calcification is mild. There is no evide nce of mitral valve prolapse. There is no mitral valve stenosis. Doppler and Color-flow revealed trac e mitral regurgitation. TRICUSPID VALVE The tricuspid valve is normal in structure and function. Doppler and Color Flow revealed trace tricus pid regurgitation. The PA pressure was estimated at 24 mmHg. There is no tricuspid valve stenosis. PULMONIC VALVE The pulmonic valve is not well visualized. Doppler and Color Flow revealed trace pulmonic valvular re gurgitation. There is no pulmonic valvular stenosis. GREAT VESSELS The aortic root is normal in size. The ascending aorta is normal in size. The IVC is normal in size a nd collapses >50% with inspiration. PERICARDIAL EFFUSION There is no evidence of significant pericardial effusion. Critical Notification Critical Value: No <Conclusion> The left ventricular systolic function is normal and the ejection fraction is within normal range. Th e Ejection Fraction is 55-60%. There is normal LV segmental wall motion. Signed by : Sarwat Lentz, Electronically Approved : 11/26/2020 14:43:26
== END ==
LOC: ECHO 10:43
PROVIDERS: ATTEND Internal Medicine Cardiovascular Disease
DX: I08.0 Rheumatic disorders of both mitral and aortic valves (principal); I42.8 Other cardiomyopathies
CPT/HCPCS: 93306